=== PATIENT | male | born 2000 | race Caucasian/White ===

== ENCOUNTER 2020-01-14 03:30 | Emergency (ER) | payer SELFPAY ==
[~2020-01-14] VITALS: Ht 180.3 cm; Wt 76.0 kg
[2020-01-14 03:40] VITALS: BP 105/62
[2020-01-14] MEDS ORDERED: CEFTRIAXONE 250 MG ONE (03:56)
[2020-01-14] MEDS ORDERED: AZITHROMYCIN 250 MG TABLET ONE (03:56)
[2020-01-14] MEDS ORDERED: CEFTRIAXONE 250 MG IM ONE (04:00)
[2020-01-14] MEDS ORDERED: AZITHROMYCIN 500 MG TABLET PO ONE (04:00)
--- NOTE | 2020-01-14 04:01 | NUR ---
task rn: pt in room sitting on gurney at this time, noted to be restless, constantly moving around. pt reports he came in tonight due to back and groin pain thats radiating down his legs. pt nad, ANOx4, gross neuro intact, wctm. bed in lowest, call light on lap.
== END 2020-01-14 04:43 | disposition home or self-care (01) ==
LOC: ED 04:07
DX: A56.01 Chlamydial cystitis and urethritis (principal); A54.01 Gonococcal cystitis and urethritis, unspecified
CPT/HCPCS: 87491; 87591; 96372; 99283; J0696

== ENCOUNTER 2020-05-25 20:08 | Emergency (ER) | payer OTHER, MEDICAID ==
[~2020-05-25] VITALS: Ht 180.3 cm; Wt 75.3 kg
--- NOTE | 2020-05-25 20:48 | NUR ---
CC OF SWELLING ON LEFT TESTICLE FOR A WEEK AND WHITE/YELLOW DISCHARGE FROM PENIS FOR 1 MONTH. C/O PAINFUL URINATION.
[2020-05-25] MEDS ORDERED: DOXYCYCLINE 100MG TABLET PO ONE (21:30)
[2020-05-25] MEDS ORDERED: CEFTRIAXONE 1,000 MG IM ONE (21:30)
[2020-05-25] MEDS ORDERED: DOXYCYCLINE 100MG TABLET ONE (21:34)
[2020-05-25] MEDS ORDERED: CEFTRIAXONE 1,000 MG ONE (21:34)
--- NOTE | 2020-05-25 21:40 | NUR ---
PT TO IMAGING
--- NOTE | 2020-05-25 21:48 | NUR ---
BREAK RN: PT [id number]&[id number], AND MEDS ADMINISTERED. ONE IS PO, AND 2ND MED IS IM. PT TOLERATED WELL.
[2020-05-25 21:49] VITALS: BP 110/72
== END 2020-05-25 22:51 | disposition home or self-care (01) ==
LOC: ED 20:38
DX: N34.1 Nonspecific urethritis (principal); N45.1 Epididymitis; N43.2 Other hydrocele
CPT/HCPCS: 76870; 96372; 99284; J0696